=== PATIENT | female | born 1960 | race Caucasian/White ===

== ENCOUNTER → 2016-08-03 | Outpatient (CLI) | payer OTHER ==
[~2016-08-03] MED LIST: GADOBUTROL 10mMol/10ml INJECTION IV ONE; SALINE FLUSH 10ml SYRINGE ONE
--- NOTE | 2016-08-03 16:39 | DI ---
Indication: ITS.REASON: M79.641 PAIN IN RIGHT HAND lump at the palmar aspect of the fifth metacarpal. PROCEDURE: MRI HAND RIGHT W/WO CONTRAST: Encounter: Initial Comparison: None graft technique: Multisequence MR imaging was performed in sagittal, axial, and coronal planes with and without contrast. 80 cc of Gadavist was utilized. Findings: 1.8 x 1.6 cm well demarcated T2 hyperintense mass along the palmar aspect of the level of the neck of the fifth metacarpal. It is isointense to muscle on T1 and demonstrates intense slightly heterogeneous enhancement. No surrounding edematous changes of the dermal tissues. The underlying fifth metacarpal appears normal as does the subjacent musculature. It displaces the fifth ray flexor tendon group radially. It appears to displace and not invade the underlying musculature. Carpal tunnel unremarkable. No marrow edema of the small bones of the hands identified. Impression: Well-demarcated solid enhancing 1.8 x 1.6 cm mass along the palmar aspect of the fifth metacarpal. Inasmuch as it has grown, histologic assessment recommended as neoplasm not excluded. .
== END ==
LOC: IMA 13:34
PROVIDERS: ATTEND Orthopaedic Surgery
DX: R22.31 Localized swelling, mass and lump, right upper limb (principal); M79.641 Pain in right hand
CPT/HCPCS: 73218; A9585